=== PATIENT | female | born 2000 | race African-American/Black ===

== ENCOUNTER 2024-08-23 19:45 | Emergency (ER) | payer MEDICAID ==
[~2024-08-23] VITALS: Ht 167.6 cm; Wt 63.5 kg
[2024-08-23] MEDS ORDERED: CETI-90 PO (21:29)
[2024-08-23] MEDS ORDERED: FLUC150T PO (21:29)
[2024-08-23 21:55] VITALS: BP 110/80; TEMP 98.5; O2SAT 96
== END 2024-08-23 21:56 | disposition home or self-care (01) ==
LOC: ER 19:45
DX: M25.532 Pain in left wrist (principal); R21 Rash and other nonspecific skin eruption; N89.8 Other specified noninflammatory disorders of vagina
CPT/HCPCS: 73090-TC; 73110